=== PATIENT | male | born 1955 | race Caucasian/White ===

== ENCOUNTER 2021-08-06 12:33 | Inpatient (IN) | payer MEDICARE, OTHER ==
[~2021-08-06] VITALS: Ht 152.4 cm; Wt 49.9 kg
[2021-08-06 15:50] VITALS: BP 137/53
[2021-08-06] MEDS ORDERED: INSULIN REGULAR, HUMAN 100 UNITS/ML SQ PRN (16:45)
[2021-08-06] MEDS ORDERED: DEXTROSE 50%-WATER 25 GM/50 ML SYRINGE IVP PRN (16:45)
[2021-08-06 17:21] LABS: GLUCOMETER DEV NAME(LOC) 2WR.2B; GLUCOSE,POINT OF CARE 54 MG/DL (70-110)
[2021-08-06] MEDS: CALCIUM ACETATE 667 MG CAPSULE PEG SCH (17:42)
[2021-08-06 19:51] LABS: GLUCOMETER DEV NAME(LOC) 2WR.2B; GLUCOSE,POINT OF CARE 109 MG/DL (70-110)
[2021-08-06] MEDS ORDERED: LOSARTAN POTASSIUM 50 MG TABLET PEG SCH (21:00)
[2021-08-06 21:30] VITALS: BP 133/64
[2021-08-06] MEDS: DOCUSATE SODIUM 100 MG/10 ML LIQUID UDCUP PEG SCH (22:02)
[2021-08-06] MEDS: ATORVASTATIN CALCIUM 40 MG TABLET PEG SCH (22:02)
[2021-08-06] MEDS: ETHYL ALCOHOL 62% ANTISEPTIC NASAL SANITIZER 0.6 ML AMPUL NASAL SCH (22:02)
[2021-08-06] MEDS: CARVEDILOL 3.125 MG TABLET PEG SCH (22:03)
[2021-08-06] MEDS: SENNA 218 MG/5 ML LIQUID ORAL.SYG PEG SCH (22:03)
[2021-08-06] MEDS: SACUBITRIL/VALSARTAN 24-26 MG TABLET PEG SCH (22:04)
[2021-08-06] MEDS: SEVELAMER CARBONATE 800 MG POWDER PACKET PEG SCH (22:04)
[2021-08-06 23:21] LABS: GLUCOMETER DEV NAME(LOC) 2WR.2B; GLUCOSE,POINT OF CARE 175 MG/DL (70-110)
[2021-08-07] VITALS (13 sets, daily range): BP systolic 108–157; BP diastolic 54–67
[2021-08-07 00:56] LABS: GLUCOMETER DEV NAME(LOC) 2WR.2B; GLUCOSE,POINT OF CARE 176 MG/DL (70-110)
[2021-08-07] MEDS ORDERED: DEXTROSE 50%-WATER 25 GM/50 ML SYRINGE IVP PRN (01:15)
[2021-08-07 06:17] LABS: GLUCOMETER DEV NAME(LOC) 2WR.1C; GLUCOSE,POINT OF CARE 118 MG/DL (70-110)
[2021-08-07] MEDS: DOCUSATE SODIUM 100 MG/10 ML LIQUID UDCUP PEG SCH ×2 (07:54→21:29)
[2021-08-07] MEDS: SACUBITRIL/VALSARTAN 24-26 MG TABLET PEG SCH ×2 (07:54→21:48)
[2021-08-07] MEDS: SEVELAMER CARBONATE 800 MG POWDER PACKET PEG SCH ×3 (07:54→21:30)
[2021-08-07] MEDS: PredniSONE 5 MG TABLET PEG SCH (07:55)
[2021-08-07] MEDS: MULTIVITAMINS WITH MINERALS, THERAPEUTIC 15 ML UDCUP PEG SCH (07:55)
[2021-08-07] MEDS: CARVEDILOL 3.125 MG TABLET PEG SCH ×2 (07:55→21:30)
[2021-08-07] MEDS: LANSOPRAZOLE 30 MG SOLUBLE TABLET PEG SCH (07:55)
[2021-08-07] MEDS: CALCIUM ACETATE 667 MG CAPSULE PEG SCH ×3 (07:55→16:26)
[2021-08-07] MEDS: AmLODIPine BESYLATE 10 MG TABLET PEG SCH (07:56)
[2021-08-07] MEDS: VITAMIN B COMP/VIT C/FOLIC ACID CAPSULE PEG SCH (07:56)
[2021-08-07] MEDS: ALLOPURINOL 100 MG TABLET PEG SCH (07:56)
[2021-08-07] MEDS: ASPIRIN 81 MG CHEWABLE TABLET PEG SCH (07:56)
[2021-08-07] MEDS: CLOPIDOGREL BISULFATE 75 MG TABLET PEG SCH (07:56)
[2021-08-07] MEDS: ETHYL ALCOHOL 62% ANTISEPTIC NASAL SANITIZER 0.6 ML AMPUL NASAL SCH ×2 (07:57→21:30)
[2021-08-07] MEDS: FLUoxetine HCL 20 MG/5 ML SOLUTION UDCUP PEG SCH (07:59)
[2021-08-07] MEDS: INSULIN REGULAR, HUMAN 100 UNITS/ML SQ PRN ×2 (12:10→17:53)
[2021-08-07 12:56] LABS: GLUCOMETER DEV NAME(LOC) 2WR.2B; GLUCOSE,POINT OF CARE 197 MG/DL (70-110)
[2021-08-07 13:55] LABS: ALBUMIN 2.5 g/dL (3.4-5.0); BILIRUBIN,TOTAL 0.4 mg/dL (0.1-1.0); CALCIUM, TOTAL 8.8 mg/dL (8.8-10.5); CREATININE 7.91 mg/dL (0.60-1.30); POTASSIUM 4.9 mmol/L (3.5-5.1); TOTAL PROTEIN, SERUM 6.9 g/dL (6.4-8.2)
[2021-08-07] MEDS ORDERED: SODIUM CHLORIDE 0.9% 1,000 ML ONE ×2 (13:58)
[2021-08-07 14:04] LABS: BASOPHILS % (AUTO) 0.8 % (0.0-2.0); EOSINOPHILS % (AUTO) 0.6 % (1.0-6.0); HEMATOCRIT 27.9 % (41-53); HEMOGLOBIN 9.5 g/dL (13.5-17.5); LYMPHOCYTES # (AUTO) 0.9 K/uL (1.0-4.8); LYMPHOCYTES % (AUTO) 11.1 % (22.0-44.0); MEAN CORPUSCULAR HEMOGLOBIN 29.6 pg (26.0-34.0); MEAN CORPUSCULAR VOLUME 87 fL (80-100); MONOCYTES # (AUTO) 0.5 K/uL (0.1-1.0); NEUTROPHILS # (AUTO) 6.6 K/uL (1.8-7.7); NEUTROPHILS % (AUTO) 81.5 % (40.0-70.0); PLATELET COUNT (AUTO) 193 K/uL (150-450); RED BLOOD CELL COUNT(AUTO) 3.21 MIL/uL (4.50-5.90); RED CELL DISTRIBUTION WIDTH 18.5 % (11.5-14.5)
[2021-08-07 19:41] LABS: GLUCOMETER DEV NAME(LOC) 2WR.1C; GLUCOSE,POINT OF CARE 186 MG/DL (70-110)
[2021-08-07] MEDS: ATORVASTATIN CALCIUM 40 MG TABLET PEG SCH (21:30)
[2021-08-07] MEDS: SENNA 218 MG/5 ML LIQUID ORAL.SYG PEG SCH (21:30)
[2021-08-08] VITALS: BP 137/59
[2021-08-08 00:26] LABS: GLUCOMETER DEV NAME(LOC) 2WR.2B; GLUCOSE,POINT OF CARE 104 MG/DL (70-110)
[2021-08-08] MEDS: CALCIUM ACETATE 667 MG CAPSULE PEG SCH ×3 (06:17→16:08)
[2021-08-08] MEDS: INSULIN REGULAR, HUMAN 100 UNITS/ML SQ PRN ×2 (06:24→12:36)
[2021-08-08 06:26] LABS: GLUCOMETER DEV NAME(LOC) 2WR.2B; GLUCOSE,POINT OF CARE 200 MG/DL (70-110)
[2021-08-08 07:44] LABS: BASOPHILS % (AUTO) 2.4 % (0.0-2.0); EOSINOPHILS % (AUTO) 2.8 % (1.0-6.0); HEMATOCRIT 24.3 % (41-53); HEMOGLOBIN 8.3 g/dL (13.5-17.5); LYMPHOCYTES # (AUTO) 0.6 K/uL (1.0-4.8); LYMPHOCYTES % (AUTO) 12.9 % (22.0-44.0); MEAN CORPUSCULAR HEMOGLOBIN 29.9 pg (26.0-34.0); MEAN CORPUSCULAR HGB CONC 34.2 G/dL (31.0-37.0); MEAN CORPUSCULAR VOLUME 87 fL (80-100); MONOCYTES # (AUTO) 0.5 K/uL (0.1-1.0); MONOCYTES % (AUTO) 9.7 % (2.0-9.0); NEUTROPHILS # (AUTO) 3.6 K/uL (1.8-7.7); NEUTROPHILS % (AUTO) 72.2 % (40.0-70.0); PLATELET COUNT (AUTO) 200 K/uL (150-450); RED BLOOD CELL COUNT(AUTO) 2.79 MIL/uL (4.50-5.90); RED CELL DISTRIBUTION WIDTH 18.3 % (11.5-14.5)
[2021-08-08 07:55] LABS: CALCIUM, TOTAL 8.6 mg/dL (8.8-10.5); CREATININE 4.61 mg/dL (0.60-1.30); MAGNESIUM 1.9 mg/dL (1.80-2.40); PHOSPHORUS 2.8 mg/dL (2.5-4.9); POTASSIUM 3.7 mmol/L (3.5-5.1)
[2021-08-08] MEDS: DOCUSATE SODIUM 100 MG/10 ML LIQUID UDCUP PEG SCH ×2 (08:35→21:00)
[2021-08-08] MEDS: ETHYL ALCOHOL 62% ANTISEPTIC NASAL SANITIZER 0.6 ML AMPUL NASAL SCH ×2 (08:35→21:44)
[2021-08-08] MEDS: FLUoxetine HCL 20 MG/5 ML SOLUTION UDCUP PEG SCH (08:36)
[2021-08-08] MEDS: SACUBITRIL/VALSARTAN 24-26 MG TABLET PEG SCH ×2 (08:36→22:30)
[2021-08-08] MEDS: MULTIVITAMINS WITH MINERALS, THERAPEUTIC 15 ML UDCUP PEG SCH (08:36)
[2021-08-08] MEDS: LANSOPRAZOLE 30 MG SOLUBLE TABLET PEG SCH (08:36)
[2021-08-08] MEDS: PredniSONE 5 MG TABLET PEG SCH (08:36)
[2021-08-08] MEDS: SEVELAMER CARBONATE 800 MG POWDER PACKET PEG SCH ×3 (08:36→21:45)
[2021-08-08] MEDS: CARVEDILOL 3.125 MG TABLET PEG SCH ×2 (08:39→21:00)
[2021-08-08] MEDS: AmLODIPine BESYLATE 10 MG TABLET PEG SCH (08:40)
[2021-08-08] MEDS: CLOPIDOGREL BISULFATE 75 MG TABLET PEG SCH (08:40)
[2021-08-08] MEDS: ASPIRIN 81 MG CHEWABLE TABLET PEG SCH (08:40)
[2021-08-08] MEDS: VITAMIN B COMP/VIT C/FOLIC ACID CAPSULE PEG SCH (08:40)
[2021-08-08] MEDS: ALLOPURINOL 100 MG TABLET PEG SCH (08:41)
[2021-08-08 09:00] VITALS: BP 147/55
[2021-08-08] MEDS ORDERED: VITAMIN B COMP/VIT C/FOLIC ACID CAPSULE PEG SCH (09:00)
[2021-08-08 13:11] LABS: GLUCOMETER DEV NAME(LOC) 2WR.2B; GLUCOSE,POINT OF CARE 177 MG/DL (70-110)
[2021-08-08 14:57] VITALS: BP 142/92
[2021-08-08] MEDS: ACETAMINOPHEN 650 MG/20.3 ML SOLUTION UDCUP PEG PRN (14:57)
[2021-08-08 15:57] VITALS: BP 104/43
[2021-08-08 16:16] LABS: GLUCOMETER DEV NAME(LOC) 2WR.1C; GLUCOSE,POINT OF CARE 182 MG/DL (70-110)
[2021-08-08] MEDS ORDERED: ASPI-1450 PEG (16:30)
[2021-08-08] MEDS ORDERED: ROSU10TA72 PO (16:30)
[2021-08-08] MEDS ORDERED: ALLO-97 PEG (16:30)
[2021-08-08] MEDS ORDERED: PHOSLOC PEG (16:30)
[2021-08-08] MEDS ORDERED: SEVE800T17 PEG (16:30)
[2021-08-08] MEDS ORDERED: AMLO-258 PEG (16:30)
[2021-08-08] MEDS ORDERED: B CO1CAP6 PEG (16:30)
[2021-08-08] MEDS ORDERED: LOSA-382 PO (16:30)
[2021-08-08] MEDS ORDERED: CARV12 PEG (16:30)
[2021-08-08] MEDS ORDERED: FERROUS SULFATE 325 MG EC TABLET PO SCH (17:00)
[2021-08-08 17:36] LABS: GLUCOMETER DEV NAME(LOC) 2WR.1C; GLUCOSE,POINT OF CARE 138 MG/DL (70-110)
[2021-08-08] MEDS: SENNA 218 MG/5 ML LIQUID ORAL.SYG PEG SCH (21:00)
[2021-08-08 21:07] VITALS: BP 123/60
[2021-08-08] MEDS: ATORVASTATIN CALCIUM 40 MG TABLET PEG SCH (21:44)
[2021-08-09] VITALS (8 sets, daily range): BP systolic 99–153; BP diastolic 52–62
[2021-08-09] MEDS: INSULIN REGULAR, HUMAN 100 UNITS/ML SQ PRN ×3 (00:17→12:44)
[2021-08-09 00:22] LABS: GLUCOMETER DEV NAME(LOC) 2WR.2B; GLUCOSE,POINT OF CARE 164 MG/DL (70-110)
[2021-08-09 06:16] LABS: GLUCOMETER DEV NAME(LOC) 2WR.1C; GLUCOSE,POINT OF CARE 178 MG/DL (70-110)
[2021-08-09 06:52] LABS: BASOPHILS % (AUTO) 0.3 % (0.0-2.0); EOSINOPHILS % (AUTO) 1.1 % (1.0-6.0); HEMATOCRIT 26.4 % (41-53); LYMPHOCYTES # (AUTO) 0.7 K/uL (1.0-4.8); LYMPHOCYTES % (AUTO) 9.9 % (22.0-44.0); MEAN CORPUSCULAR HEMOGLOBIN 29.8 pg (26.0-34.0); MEAN CORPUSCULAR HGB CONC 34.2 G/dL (31.0-37.0); MEAN CORPUSCULAR VOLUME 87 fL (80-100); MONOCYTES # (AUTO) 0.6 K/uL (0.1-1.0); NEUTROPHILS # (AUTO) 5.8 K/uL (1.8-7.7); NEUTROPHILS % (AUTO) 80.7 % (40.0-70.0); PLATELET COUNT (AUTO) 227 K/uL (150-450); RED BLOOD CELL COUNT(AUTO) 3.03 MIL/uL (4.50-5.90); RED CELL DISTRIBUTION WIDTH 18.6 % (11.5-14.5)
[2021-08-09] MEDS: ASPIRIN 81 MG CHEWABLE TABLET PEG SCH (08:39)
[2021-08-09] MEDS: CALCIUM ACETATE 667 MG CAPSULE PEG SCH ×3 (08:39→16:16)
[2021-08-09] MEDS: CLOPIDOGREL BISULFATE 75 MG TABLET PEG SCH (08:40)
[2021-08-09] MEDS: DOCUSATE SODIUM 100 MG/10 ML LIQUID UDCUP PEG SCH ×3 (08:40→20:17)
[2021-08-09] MEDS: ETHYL ALCOHOL 62% ANTISEPTIC NASAL SANITIZER 0.6 ML AMPUL NASAL SCH ×2 (08:40→20:16)
[2021-08-09] MEDS: AmLODIPine BESYLATE 10 MG TABLET PEG SCH (08:40)
[2021-08-09] MEDS: VITAMIN B COMP/VIT C/FOLIC ACID CAPSULE PEG SCH (08:40)
[2021-08-09] MEDS: ALLOPURINOL 100 MG TABLET PEG SCH (08:40)
[2021-08-09] MEDS: CARVEDILOL 3.125 MG TABLET PEG SCH ×2 (08:40→20:26)
[2021-08-09] MEDS: PredniSONE 5 MG TABLET PEG SCH (08:41)
[2021-08-09] MEDS: SACUBITRIL/VALSARTAN 24-26 MG TABLET PEG SCH ×2 (08:41→20:26)
[2021-08-09] MEDS: FLUoxetine HCL 20 MG/5 ML SOLUTION UDCUP PEG SCH (08:41)
[2021-08-09] MEDS: LANSOPRAZOLE 30 MG SOLUBLE TABLET PEG SCH (08:41)
[2021-08-09] MEDS: SEVELAMER CARBONATE 800 MG POWDER PACKET PEG SCH ×3 (08:42→20:26)
[2021-08-09 12:21] LABS: GLUCOMETER DEV NAME(LOC) 2WR.1C; GLUCOSE,POINT OF CARE 163 MG/DL (70-110)
[2021-08-09] MEDS: ACETAMINOPHEN 650 MG/20.3 ML SOLUTION UDCUP PEG PRN ×2 (12:42→20:27)
[2021-08-09 18:55] LABS: GLUCOMETER DEV NAME(LOC) 2WR.2B; GLUCOSE,POINT OF CARE 85 MG/DL (70-110)
[2021-08-09] MEDS: SENNA 218 MG/5 ML LIQUID ORAL.SYG PEG SCH (20:18)
[2021-08-09] MEDS: ATORVASTATIN CALCIUM 40 MG TABLET PEG SCH (20:26)
[2021-08-10] VITALS (12 sets, daily range): BP systolic 107–147; BP diastolic 50–80
[2021-08-10] MEDS: INSULIN REGULAR, HUMAN 100 UNITS/ML SQ PRN (02:27)
[2021-08-10 04:06] LABS: GLUCOMETER DEV NAME(LOC) 2WR.2B; GLUCOSE,POINT OF CARE 180 MG/DL (70-110)
[2021-08-10 06:21] LABS: GLUCOMETER DEV NAME(LOC) 2WR.1C; GLUCOSE,POINT OF CARE 135 MG/DL (70-110)
[2021-08-10] MEDS: CALCIUM ACETATE 667 MG CAPSULE PEG SCH ×3 (08:35→16:46)
[2021-08-10] MEDS: CARVEDILOL 3.125 MG TABLET PEG SCH (08:47)
[2021-08-10] MEDS: ETHYL ALCOHOL 62% ANTISEPTIC NASAL SANITIZER 0.6 ML AMPUL NASAL SCH (08:47)
[2021-08-10] MEDS: ASPIRIN 81 MG CHEWABLE TABLET PEG SCH (08:47)
[2021-08-10] MEDS: DOCUSATE SODIUM 100 MG/10 ML LIQUID UDCUP PEG SCH ×2 (08:47→21:00)
[2021-08-10] MEDS: LANSOPRAZOLE 30 MG SOLUBLE TABLET PEG SCH (08:48)
[2021-08-10] MEDS: SACUBITRIL/VALSARTAN 24-26 MG TABLET PEG SCH (08:48)
[2021-08-10] MEDS: FLUoxetine HCL 20 MG/5 ML SOLUTION UDCUP PEG SCH (08:49)
[2021-08-10] MEDS: VITAMIN B COMP/VIT C/FOLIC ACID CAPSULE PEG SCH (08:49)
[2021-08-10] MEDS: AmLODIPine BESYLATE 10 MG TABLET PEG SCH (08:51)
[2021-08-10] MEDS: SEVELAMER CARBONATE 800 MG POWDER PACKET PEG SCH ×2 (08:53→14:57)
[2021-08-10] MEDS: PredniSONE 5 MG TABLET PEG SCH (08:55)
[2021-08-10] MEDS: CLOPIDOGREL BISULFATE 75 MG TABLET PEG SCH (08:56)
[2021-08-10] MEDS: ALLOPURINOL 100 MG TABLET PEG SCH (09:02)
[2021-08-10] MEDS ORDERED: SODIUM CHLORIDE 0.9% 2,000 ML ONE (09:39)
[2021-08-10 11:56] LABS: GLUCOMETER DEV NAME(LOC) 2WR.1C; GLUCOSE,POINT OF CARE 131 MG/DL (70-110)
[2021-08-10 16:55] LABS: GLUCOMETER DEV NAME(LOC) 2WR.2B; GLUCOSE,POINT OF CARE 115 MG/DL (70-110)
[2021-08-10] MEDS: SENNA 218 MG/5 ML LIQUID ORAL.SYG PEG SCH (21:00)
[2021-08-10 22:01] LABS: GLUCOMETER DEV NAME(LOC) 2WR.1C; GLUCOSE,POINT OF CARE 108 MG/DL (70-110)
[2021-08-11] VITALS: BP 133/58
[2021-08-11] MEDS: CARVEDILOL 3.125 MG TABLET PEG SCH ×3 (00:18→21:06)
[2021-08-11] MEDS: ETHYL ALCOHOL 62% ANTISEPTIC NASAL SANITIZER 0.6 ML AMPUL NASAL SCH ×3 (00:18→21:06)
[2021-08-11] MEDS: SACUBITRIL/VALSARTAN 24-26 MG TABLET PEG SCH ×3 (00:19→21:06)
[2021-08-11] MEDS: SEVELAMER CARBONATE 800 MG POWDER PACKET PEG SCH ×4 (00:20→21:06)
[2021-08-11] MEDS: ATORVASTATIN CALCIUM 40 MG TABLET PEG SCH ×2 (00:21→21:06)
[2021-08-11] MEDS: DOCUSATE SODIUM 283 MG/5 ML MINI-ENEMA PR SCH (05:55)
[2021-08-11 06:36] LABS: GLUCOMETER DEV NAME(LOC) 2WR.1C; GLUCOSE,POINT OF CARE 103 MG/DL (70-110)
[2021-08-11 08:15] VITALS: BP 146/56
[2021-08-11] MEDS: CLOPIDOGREL BISULFATE 75 MG TABLET PEG SCH (08:19)
[2021-08-11] MEDS: VITAMIN B COMP/VIT C/FOLIC ACID CAPSULE PEG SCH (08:19)
[2021-08-11] MEDS: ALLOPURINOL 100 MG TABLET PEG SCH (08:19)
[2021-08-11] MEDS: CALCIUM ACETATE 667 MG CAPSULE PEG SCH ×4 (08:19→16:02)
[2021-08-11] MEDS: AmLODIPine BESYLATE 10 MG TABLET PEG SCH (08:20)
[2021-08-11] MEDS: ASPIRIN 81 MG CHEWABLE TABLET PEG SCH (08:20)
[2021-08-11] MEDS: FLUoxetine HCL 20 MG/5 ML SOLUTION UDCUP PEG SCH (08:20)
[2021-08-11] MEDS: DOCUSATE SODIUM 100 MG/10 ML LIQUID UDCUP PEG SCH ×2 (08:21→21:00)
[2021-08-11] MEDS: LANSOPRAZOLE 30 MG SOLUBLE TABLET PEG SCH (08:21)
[2021-08-11] MEDS: PredniSONE 5 MG TABLET PEG SCH (08:21)
[2021-08-11 09:34] LABS: % IRON SATURATION 19.4 % (30-44)
[2021-08-11 11:51] LABS: GLUCOMETER DEV NAME(LOC) 2WR.2B; GLUCOSE,POINT OF CARE 261 MG/DL (70-110)
[2021-08-11] MEDS: INSULIN LISPRO 100 UNITS/ML SQ PRN ×3 (12:37→20:25)
[2021-08-11] MEDS: SOD FERRIC GLUC COMPLX/SUCROSE 125 MG in SODIUM CHLORIDE 0.9% 100 ML IV SCH (14:54)
[2021-08-11] MEDS ORDERED: SODIUM CHLORIDE 0.9% 100 ML ONE (14:57)
[2021-08-11 16:01] VITALS: BP 104/56
[2021-08-11 17:51] LABS: GLUCOMETER DEV NAME(LOC) 2WR.2B; GLUCOSE,POINT OF CARE 192 MG/DL (70-110)
[2021-08-11 20:27] VITALS: BP 125/54
[2021-08-11] MEDS: SENNA 218 MG/5 ML LIQUID ORAL.SYG PEG SCH (21:00)
[2021-08-11 21:46] LABS: GLUCOMETER DEV NAME(LOC) 2WR.2B; GLUCOSE,POINT OF CARE 153 MG/DL (70-110)
[2021-08-12] VITALS (13 sets, daily range): BP systolic 100–140; BP diastolic 47–71
[2021-08-12] MEDS: DOCUSATE SODIUM 283 MG/5 ML MINI-ENEMA PR SCH (05:39)
[2021-08-12 06:51] LABS: GLUCOMETER DEV NAME(LOC) 2WR.2B; GLUCOSE,POINT OF CARE 170 MG/DL (70-110)
[2021-08-12] MEDS: INSULIN LISPRO 100 UNITS/ML SQ PRN ×2 (07:30→12:44)
[2021-08-12] MEDS: SEVELAMER CARBONATE 800 MG POWDER PACKET PEG SCH ×3 (07:58→21:37)
[2021-08-12] MEDS: FLUoxetine HCL 20 MG/5 ML SOLUTION UDCUP PEG SCH (07:58)
[2021-08-12] MEDS: CALCIUM ACETATE 667 MG CAPSULE PEG SCH ×3 (08:00→18:10)
[2021-08-12] MEDS: ASPIRIN 81 MG CHEWABLE TABLET PEG SCH (08:00)
[2021-08-12] MEDS: ETHYL ALCOHOL 62% ANTISEPTIC NASAL SANITIZER 0.6 ML AMPUL NASAL SCH ×2 (08:00→21:38)
[2021-08-12] MEDS: AmLODIPine BESYLATE 10 MG TABLET PEG SCH (08:01)
[2021-08-12] MEDS: CARVEDILOL 3.125 MG TABLET PEG SCH ×2 (08:01→21:38)
[2021-08-12] MEDS: DOCUSATE SODIUM 100 MG/10 ML LIQUID UDCUP PEG SCH ×2 (08:01→21:38)
[2021-08-12] MEDS: PredniSONE 5 MG TABLET PEG SCH (08:02)
[2021-08-12] MEDS: SACUBITRIL/VALSARTAN 24-26 MG TABLET PEG SCH ×2 (08:02→21:38)
[2021-08-12] MEDS: LANSOPRAZOLE 30 MG SOLUBLE TABLET PEG SCH (08:02)
[2021-08-12] MEDS: CLOPIDOGREL BISULFATE 75 MG TABLET PEG SCH (08:03)
[2021-08-12] MEDS: VITAMIN B COMP/VIT C/FOLIC ACID CAPSULE PEG SCH (08:03)
[2021-08-12] MEDS: ALLOPURINOL 100 MG TABLET PEG SCH (08:06)
[2021-08-12 13:01] LABS: GLUCOMETER DEV NAME(LOC) 2WR.2B; GLUCOSE,POINT OF CARE 165 MG/DL (70-110)
[2021-08-12] MEDS ORDERED: SODIUM CHLORIDE 0.9% 1,000 ML ONE ×2 (13:40)
[2021-08-12] MEDS: SOD FERRIC GLUC COMPLX/SUCROSE 125 MG in SODIUM CHLORIDE 0.9% 100 ML IV SCH (14:00)
[2021-08-12 19:12] LABS: GLUCOMETER DEV NAME(LOC) 2WR.1C; GLUCOSE,POINT OF CARE 97 MG/DL (70-110)
[2021-08-12] MEDS: ATORVASTATIN CALCIUM 40 MG TABLET PEG SCH (21:38)
[2021-08-12] MEDS: SENNA 218 MG/5 ML LIQUID ORAL.SYG PEG SCH (21:38)
[2021-08-12 22:11] LABS: GLUCOMETER DEV NAME(LOC) 2WR.1C; GLUCOSE,POINT OF CARE 124 MG/DL (70-110)
[2021-08-13] MEDS: DOCUSATE SODIUM 283 MG/5 ML MINI-ENEMA PR SCH (06:32)
[2021-08-13 06:46] LABS: GLUCOMETER DEV NAME(LOC) 2WR.2B; GLUCOSE,POINT OF CARE 157 MG/DL (70-110)
[2021-08-13 08:15] VITALS: BP 144/61
[2021-08-13] MEDS: INSULIN LISPRO 100 UNITS/ML SQ PRN ×3 (08:43→20:39)
[2021-08-13] MEDS: DOCUSATE SODIUM 100 MG/10 ML LIQUID UDCUP PEG SCH ×2 (09:00→21:00)
[2021-08-13] MEDS: ETHYL ALCOHOL 62% ANTISEPTIC NASAL SANITIZER 0.6 ML AMPUL NASAL SCH ×2 (09:10→20:43)
[2021-08-13] MEDS: CALCIUM ACETATE 667 MG CAPSULE PEG SCH ×3 (09:10→16:59)
[2021-08-13] MEDS: ASPIRIN 81 MG CHEWABLE TABLET PEG SCH (09:11)
[2021-08-13] MEDS: PredniSONE 5 MG TABLET PEG SCH (09:12)
[2021-08-13] MEDS: SACUBITRIL/VALSARTAN 24-26 MG TABLET PEG SCH ×2 (09:12→20:42)
[2021-08-13] MEDS: CARVEDILOL 3.125 MG TABLET PEG SCH ×2 (09:12→20:42)
[2021-08-13] MEDS: LANSOPRAZOLE 30 MG SOLUBLE TABLET PEG SCH (09:13)
[2021-08-13] MEDS: CLOPIDOGREL BISULFATE 75 MG TABLET PEG SCH (09:13)
[2021-08-13] MEDS: AmLODIPine BESYLATE 10 MG TABLET PEG SCH (09:13)
[2021-08-13] MEDS: VITAMIN B COMP/VIT C/FOLIC ACID CAPSULE PEG SCH (09:13)
[2021-08-13] MEDS: SEVELAMER CARBONATE 800 MG POWDER PACKET PEG SCH ×3 (09:13→20:43)
[2021-08-13] MEDS: FLUoxetine HCL 20 MG/5 ML SOLUTION UDCUP PEG SCH (09:13)
[2021-08-13] MEDS: 0.9% SODIUM CHLORIDE 10 ML SYRINGE IVP SCH ×2 (09:14→22:14)
[2021-08-13] MEDS: ALLOPURINOL 100 MG TABLET PEG SCH (09:14)
[2021-08-13 12:41] LABS: GLUCOMETER DEV NAME(LOC) 2WR.2B; GLUCOSE,POINT OF CARE 219 MG/DL (70-110)
[2021-08-13] MEDS: SOD FERRIC GLUC COMPLX/SUCROSE 125 MG in SODIUM CHLORIDE 0.9% 100 ML IV SCH (13:53)
[2021-08-13 15:31] VITALS: BP 96/43
[2021-08-13 17:26] LABS: GLUCOMETER DEV NAME(LOC) 2WR.1C; GLUCOSE,POINT OF CARE 134 MG/DL (70-110)
[2021-08-13] MEDS ORDERED: SENNA 218 MG/5 ML LIQUID ORAL.SYG PEG PRN (18:45)
[2021-08-13 20:00] VITALS: BP 120/59
[2021-08-13 20:31] LABS: GLUCOMETER DEV NAME(LOC) 2WR.2B; GLUCOSE,POINT OF CARE 172 MG/DL (70-110)
[2021-08-13] MEDS: ATORVASTATIN CALCIUM 40 MG TABLET PEG SCH (20:44)
[2021-08-14 05:46] LABS: HEMATOCRIT 23.4 % (41-53); HEMOGLOBIN 8.1 g/dL (13.5-17.5); LYMPHOCYTES # (AUTO) 0.8 K/uL (1.0-4.8); MEAN CORPUSCULAR HEMOGLOBIN 29.9 pg (26.0-34.0); MEAN CORPUSCULAR HGB CONC 34.7 G/dL (31.0-37.0); MEAN CORPUSCULAR VOLUME 86 fL (80-100); MONOCYTES # (AUTO) 0.6 K/uL (0.1-1.0); MONOCYTES % (AUTO) 11.6 % (2.0-9.0); NEUTROPHILS # (AUTO) 3.8 K/uL (1.8-7.7); NEUTROPHILS % (AUTO) 69.4 % (40.0-70.0); PLATELET COUNT (AUTO) 217 K/uL (150-450); RED BLOOD CELL COUNT(AUTO) 2.72 MIL/uL (4.50-5.90)
[2021-08-14 05:59] LABS: CALCIUM, TOTAL 8.2 mg/dL (8.8-10.5); CREATININE 6.06 mg/dL (0.60-1.30); POTASSIUM 3.8 mmol/L (3.5-5.1)
[2021-08-14 06:21] LABS: GLUCOMETER DEV NAME(LOC) 2WR.2B; GLUCOSE,POINT OF CARE 150 MG/DL (70-110)
[2021-08-14 07:50] VITALS: BP 139/57
[2021-08-14] MEDS: CALCIUM ACETATE 667 MG CAPSULE PEG SCH ×3 (08:12→16:41)
[2021-08-14] MEDS: ASPIRIN 81 MG CHEWABLE TABLET PEG SCH (08:13)
[2021-08-14] MEDS: ETHYL ALCOHOL 62% ANTISEPTIC NASAL SANITIZER 0.6 ML AMPUL NASAL SCH ×2 (08:13→21:29)
[2021-08-14] MEDS: 0.9% SODIUM CHLORIDE 10 ML SYRINGE IVP SCH ×2 (08:13→21:29)
[2021-08-14] MEDS: CLOPIDOGREL BISULFATE 75 MG TABLET PEG SCH (08:13)
[2021-08-14] MEDS: VITAMIN B COMP/VIT C/FOLIC ACID CAPSULE PEG SCH (08:13)
[2021-08-14] MEDS: ALLOPURINOL 100 MG TABLET PEG SCH (08:13)
[2021-08-14] MEDS: PredniSONE 5 MG TABLET PEG SCH (08:14)
[2021-08-14] MEDS: SACUBITRIL/VALSARTAN 24-26 MG TABLET PEG SCH ×2 (08:14→21:28)
[2021-08-14] MEDS: FLUoxetine HCL 20 MG/5 ML SOLUTION UDCUP PEG SCH (08:14)
[2021-08-14] MEDS: LANSOPRAZOLE 30 MG SOLUBLE TABLET PEG SCH (08:15)
[2021-08-14] MEDS: SEVELAMER CARBONATE 800 MG POWDER PACKET PEG SCH ×3 (08:15→21:28)
[2021-08-14] MEDS: AmLODIPine BESYLATE 10 MG TABLET PEG SCH (08:44)
[2021-08-14] MEDS: CARVEDILOL 3.125 MG TABLET PEG SCH ×2 (08:44→21:28)
[2021-08-14] MEDS: DOCUSATE SODIUM 100 MG/10 ML LIQUID UDCUP PEG SCH ×2 (08:44→21:28)
[2021-08-14] MEDS: INSULIN LISPRO 100 UNITS/ML SQ PRN ×3 (08:46→16:59)
[2021-08-14 09:00] VITALS: BP 126/54
[2021-08-14 11:57] LABS: GLUCOMETER DEV NAME(LOC) 2WR.2B; GLUCOSE,POINT OF CARE 186 MG/DL (70-110)
[2021-08-14] MEDS: SOD FERRIC GLUC COMPLX/SUCROSE 125 MG in SODIUM CHLORIDE 0.9% 100 ML IV SCH (13:06)
[2021-08-14 13:32] VITALS: BP 118/47
[2021-08-14 16:56] LABS: GLUCOMETER DEV NAME(LOC) 2WR.2B; GLUCOSE,POINT OF CARE 161 MG/DL (70-110)
[2021-08-14 20:00] VITALS: BP 131/53
[2021-08-14 21:16] LABS: GLUCOMETER DEV NAME(LOC) 2WR.2B; GLUCOSE,POINT OF CARE 126 MG/DL (70-110)
[2021-08-14] MEDS: ATORVASTATIN CALCIUM 40 MG TABLET PEG SCH (21:28)
[2021-08-15] VITALS (11 sets, daily range): BP systolic 111–147; BP diastolic 50–60
[2021-08-15 06:31] LABS: GLUCOMETER DEV NAME(LOC) 2WR.2B; GLUCOSE,POINT OF CARE 159 MG/DL (70-110)
[2021-08-15] MEDS: INSULIN LISPRO 100 UNITS/ML SQ PRN ×2 (08:31→12:41)
[2021-08-15] MEDS: CALCIUM ACETATE 667 MG CAPSULE PEG SCH ×3 (08:38→16:40)
[2021-08-15] MEDS: 0.9% SODIUM CHLORIDE 10 ML SYRINGE IVP SCH ×2 (08:50→21:01)
[2021-08-15] MEDS: CARVEDILOL 3.125 MG TABLET PEG SCH ×2 (09:00→20:11)
[2021-08-15] MEDS: AmLODIPine BESYLATE 10 MG TABLET PEG SCH (09:00)
[2021-08-15] MEDS: ETHYL ALCOHOL 62% ANTISEPTIC NASAL SANITIZER 0.6 ML AMPUL NASAL SCH ×2 (09:51→20:11)
[2021-08-15] MEDS: DOCUSATE SODIUM 100 MG/10 ML LIQUID UDCUP PEG SCH ×2 (09:51→20:11)
[2021-08-15] MEDS: ASPIRIN 81 MG CHEWABLE TABLET PEG SCH (09:51)
[2021-08-15] MEDS: VITAMIN B COMP/VIT C/FOLIC ACID CAPSULE PEG SCH (09:53)
[2021-08-15] MEDS: CLOPIDOGREL BISULFATE 75 MG TABLET PEG SCH (09:53)
[2021-08-15] MEDS: LANSOPRAZOLE 30 MG SOLUBLE TABLET PEG SCH (09:53)
[2021-08-15] MEDS: PredniSONE 5 MG TABLET PEG SCH (09:53)
[2021-08-15] MEDS: SACUBITRIL/VALSARTAN 24-26 MG TABLET PEG SCH ×2 (09:53→20:11)
[2021-08-15] MEDS: SEVELAMER CARBONATE 800 MG POWDER PACKET PEG SCH ×3 (09:54→20:11)
[2021-08-15] MEDS: FLUoxetine HCL 20 MG/5 ML SOLUTION UDCUP PEG SCH (09:54)
[2021-08-15] MEDS: ALLOPURINOL 100 MG TABLET PEG SCH (09:55)
[2021-08-15] MEDS ORDERED: SODIUM CHLORIDE 0.9% 1,000 ML ONE (12:58)
[2021-08-15] MEDS: SOD FERRIC GLUC COMPLX/SUCROSE 125 MG in SODIUM CHLORIDE 0.9% 100 ML IV SCH (13:13)
[2021-08-15 14:26] LABS: GLUCOMETER DEV NAME(LOC) 2WR.2B; GLUCOSE,POINT OF CARE 187 MG/DL (70-110)
[2021-08-15 18:36] LABS: GLUCOMETER DEV NAME(LOC) 2WR.2B; GLUCOSE,POINT OF CARE 108 MG/DL (70-110)
[2021-08-15] MEDS: ATORVASTATIN CALCIUM 40 MG TABLET PEG SCH (20:11)
[2021-08-15 21:11] LABS: GLUCOMETER DEV NAME(LOC) 2WR.2B; GLUCOSE,POINT OF CARE 119 MG/DL (70-110)
[2021-08-16 06:56] LABS: GLUCOMETER DEV NAME(LOC) 2WR.2B; GLUCOSE,POINT OF CARE 122 MG/DL (70-110)
[2021-08-16] MEDS: FLUoxetine HCL 20 MG/5 ML SOLUTION UDCUP PEG SCH (08:48)
[2021-08-16] MEDS: SEVELAMER CARBONATE 800 MG POWDER PACKET PEG SCH ×3 (08:48→20:51)
[2021-08-16] MEDS: VITAMIN B COMP/VIT C/FOLIC ACID CAPSULE PEG SCH (08:49)
[2021-08-16] MEDS: ALLOPURINOL 100 MG TABLET PEG SCH (08:49)
[2021-08-16] MEDS: SACUBITRIL/VALSARTAN 24-26 MG TABLET PEG SCH ×2 (08:49→20:51)
[2021-08-16] MEDS: AmLODIPine BESYLATE 10 MG TABLET PEG SCH (08:49)
[2021-08-16] MEDS: LANSOPRAZOLE 30 MG SOLUBLE TABLET PEG SCH (08:49)
[2021-08-16] MEDS: CARVEDILOL 3.125 MG TABLET PEG SCH ×2 (08:49→20:51)
[2021-08-16] MEDS: ASPIRIN 81 MG CHEWABLE TABLET PEG SCH (08:49)
[2021-08-16] MEDS: CALCIUM ACETATE 667 MG CAPSULE PEG SCH ×3 (08:49→17:03)
[2021-08-16] MEDS: PredniSONE 5 MG TABLET PEG SCH (08:49)
[2021-08-16] MEDS: DOCUSATE SODIUM 100 MG/10 ML LIQUID UDCUP PEG SCH ×2 (08:50→20:52)
[2021-08-16] MEDS: ETHYL ALCOHOL 62% ANTISEPTIC NASAL SANITIZER 0.6 ML AMPUL NASAL SCH ×2 (08:50→20:51)
[2021-08-16] MEDS: CLOPIDOGREL BISULFATE 75 MG TABLET PEG SCH (08:50)
[2021-08-16] MEDS: 0.9% SODIUM CHLORIDE 10 ML SYRINGE IVP SCH ×2 (08:50→21:26)
[2021-08-16 10:53] VITALS: BP 146/54
[2021-08-16] MEDS ORDERED: SODIUM CHLORIDE 0.9% 250 ML IV ONE (12:36)
[2021-08-16] MEDS: INSULIN LISPRO 100 UNITS/ML SQ PRN ×2 (12:40→17:01)
[2021-08-16 13:26] LABS: GLUCOMETER DEV NAME(LOC) 2WR.1C; GLUCOSE,POINT OF CARE 207 MG/DL (70-110)
[2021-08-16 15:13] VITALS: BP 114/52
[2021-08-16 17:46] LABS: GLUCOMETER DEV NAME(LOC) 2WR.1C; GLUCOSE,POINT OF CARE 164 MG/DL (70-110)
[2021-08-16] MEDS: ATORVASTATIN CALCIUM 40 MG TABLET PEG SCH (20:51)
[2021-08-16 21:16] LABS: GLUCOMETER DEV NAME(LOC) 2WR.1C; GLUCOSE,POINT OF CARE 128 MG/DL (70-110)
[2021-08-16] MEDS: SOD FERRIC GLUC COMPLX/SUCROSE 125 MG in SODIUM CHLORIDE 0.9% 100 ML IV SCH (21:24)
[2021-08-17] VITALS (14 sets, daily range): BP systolic 125–160; BP diastolic 55–70
[2021-08-17 05:39] LABS: EOSINOPHILS % (AUTO) 2.7 % (1.0-6.0); HEMOGLOBIN 7.8 g/dL (13.5-17.5); LYMPHOCYTES % (AUTO) 14.9 % (22.0-44.0); MEAN CORPUSCULAR HEMOGLOBIN 30.2 pg (26.0-34.0); MEAN CORPUSCULAR HGB CONC 35.3 G/dL (31.0-37.0); MEAN CORPUSCULAR VOLUME 86 fL (80-100); MONOCYTES # (AUTO) 0.5 K/uL (0.1-1.0); MONOCYTES % (AUTO) 7.6 % (2.0-9.0); NEUTROPHILS % (AUTO) 73.8 % (40.0-70.0); PLATELET COUNT (AUTO) 169 K/uL (150-450); RED BLOOD CELL COUNT(AUTO) 2.57 MIL/uL (4.50-5.90); RED CELL DISTRIBUTION WIDTH 18.6 % (11.5-14.5)
[2021-08-17 06:01] LABS: CREATININE 5.61 mg/dL (0.60-1.30)
[2021-08-17 06:02] LABS: CALCIUM, TOTAL 8.2 mg/dL (8.8-10.5)
[2021-08-17 06:26] LABS: GLUCOMETER DEV NAME(LOC) 2WR.1C; GLUCOSE,POINT OF CARE 153 MG/DL (70-110)
[2021-08-17] MEDS: CALCIUM ACETATE 667 MG CAPSULE PEG SCH ×3 (08:09→20:23)
[2021-08-17] MEDS: ETHYL ALCOHOL 62% ANTISEPTIC NASAL SANITIZER 0.6 ML AMPUL NASAL SCH ×2 (08:09→20:25)
[2021-08-17] MEDS: ALLOPURINOL 100 MG TABLET PEG SCH (08:09)
[2021-08-17] MEDS: VITAMIN B COMP/VIT C/FOLIC ACID CAPSULE PEG SCH (08:09)
[2021-08-17] MEDS: ASPIRIN 81 MG CHEWABLE TABLET PEG SCH (08:10)
[2021-08-17] MEDS: FLUoxetine HCL 20 MG/5 ML SOLUTION UDCUP PEG SCH (08:10)
[2021-08-17] MEDS: SEVELAMER CARBONATE 800 MG POWDER PACKET PEG SCH ×3 (08:10→20:24)
[2021-08-17] MEDS: CLOPIDOGREL BISULFATE 75 MG TABLET PEG SCH (08:10)
[2021-08-17] MEDS: LANSOPRAZOLE 30 MG SOLUBLE TABLET PEG SCH (08:11)
[2021-08-17] MEDS: DOCUSATE SODIUM 100 MG/10 ML LIQUID UDCUP PEG SCH ×2 (08:14→20:23)
[2021-08-17] MEDS: SACUBITRIL/VALSARTAN 24-26 MG TABLET PEG SCH ×3 (08:15→20:24)
[2021-08-17] MEDS: AmLODIPine BESYLATE 10 MG TABLET PEG SCH (08:15)
[2021-08-17] MEDS: CARVEDILOL 3.125 MG TABLET PEG SCH ×2 (08:16→20:24)
[2021-08-17] MEDS: INSULIN LISPRO 100 UNITS/ML SQ PRN (08:35)
[2021-08-17] MEDS: 0.9% SODIUM CHLORIDE 10 ML SYRINGE IVP SCH ×2 (09:08→21:14)
[2021-08-17] MEDS: MODAFINIL 100 MG TABLET PO SCH (12:03)
[2021-08-17 12:42] LABS: GLUCOMETER DEV NAME(LOC) 2WR.2B; GLUCOSE,POINT OF CARE 130 MG/DL (70-110)
[2021-08-17] MEDS: SOD FERRIC GLUC COMPLX/SUCROSE 125 MG in SODIUM CHLORIDE 0.9% 100 ML IV SCH (13:16)
[2021-08-17] MEDS ORDERED: SODIUM CHLORIDE 0.9% 2,000 ML ONE (14:32)
[2021-08-17 19:31] LABS: GLUCOMETER DEV NAME(LOC) 2WR.2B; GLUCOSE,POINT OF CARE 132 MG/DL (70-110)
[2021-08-17] MEDS: ATORVASTATIN CALCIUM 40 MG TABLET PEG SCH (20:25)
[2021-08-17 21:32] LABS: GLUCOMETER DEV NAME(LOC) 2WR.2B; GLUCOSE,POINT OF CARE 123 MG/DL (70-110)
[2021-08-18 07:46] LABS: GLUCOMETER DEV NAME(LOC) 2WR.2B; GLUCOSE,POINT OF CARE 97 MG/DL (70-110)
[2021-08-18 08:02] VITALS: BP 141/53
[2021-08-18] MEDS: LANSOPRAZOLE 30 MG SOLUBLE TABLET PEG SCH (08:11)
[2021-08-18] MEDS: AmLODIPine BESYLATE 10 MG TABLET PEG SCH (08:11)
[2021-08-18] MEDS: SACUBITRIL/VALSARTAN 24-26 MG TABLET PEG SCH ×2 (08:11→21:08)
[2021-08-18] MEDS: VITAMIN B COMP/VIT C/FOLIC ACID CAPSULE PEG SCH (08:11)
[2021-08-18] MEDS: MODAFINIL 100 MG TABLET PO SCH (08:12)
[2021-08-18] MEDS: ALLOPURINOL 100 MG TABLET PEG SCH (08:12)
[2021-08-18] MEDS: CALCIUM ACETATE 667 MG CAPSULE PEG SCH ×3 (08:12→16:28)
[2021-08-18] MEDS: ASPIRIN 81 MG CHEWABLE TABLET PEG SCH (08:12)
[2021-08-18] MEDS: CLOPIDOGREL BISULFATE 75 MG TABLET PEG SCH (08:12)
[2021-08-18] MEDS: CARVEDILOL 3.125 MG TABLET PEG SCH ×2 (08:12→21:08)
[2021-08-18] MEDS: SEVELAMER CARBONATE 800 MG POWDER PACKET PEG SCH ×3 (08:13→21:08)
[2021-08-18] MEDS: FLUoxetine HCL 20 MG/5 ML SOLUTION UDCUP PEG SCH (08:13)
[2021-08-18] MEDS: DOCUSATE SODIUM 100 MG/10 ML LIQUID UDCUP PEG SCH ×2 (08:13→21:08)
[2021-08-18] MEDS: ETHYL ALCOHOL 62% ANTISEPTIC NASAL SANITIZER 0.6 ML AMPUL NASAL SCH ×2 (08:13→21:08)
[2021-08-18] MEDS: 0.9% SODIUM CHLORIDE 10 ML SYRINGE IVP SCH ×2 (08:14→21:08)
[2021-08-18] MEDS: INSULIN LISPRO 100 UNITS/ML SQ PRN ×2 (12:26→21:15)
[2021-08-18 13:01] LABS: GLUCOMETER DEV NAME(LOC) 2WR.2B; GLUCOSE,POINT OF CARE 164 MG/DL (70-110)
[2021-08-18] MEDS: SOD FERRIC GLUC COMPLX/SUCROSE 125 MG in SODIUM CHLORIDE 0.9% 100 ML IV SCH (14:56)
[2021-08-18 16:41] LABS: GLUCOMETER DEV NAME(LOC) 2WR.2B; GLUCOSE,POINT OF CARE 103 MG/DL (70-110)
[2021-08-18 20:50] LABS: GLUCOMETER DEV NAME(LOC) 2WR.2B; GLUCOSE,POINT OF CARE 148 MG/DL (70-110)
[2021-08-18] MEDS: ATORVASTATIN CALCIUM 40 MG TABLET PEG SCH (21:08)
[2021-08-18 21:15] VITALS: BP 133/49
[2021-08-19] VITALS (10 sets, daily range): BP systolic 130–144; BP diastolic 50–61
[2021-08-19 06:46] LABS: GLUCOMETER DEV NAME(LOC) 2WR.1C; GLUCOSE,POINT OF CARE 112 MG/DL (70-110)
[2021-08-19] MEDS: LANSOPRAZOLE 30 MG SOLUBLE TABLET PEG SCH (07:47)
[2021-08-19] MEDS: VITAMIN B COMP/VIT C/FOLIC ACID CAPSULE PEG SCH (07:47)
[2021-08-19] MEDS: SACUBITRIL/VALSARTAN 24-26 MG TABLET PEG SCH ×2 (07:47→20:27)
[2021-08-19] MEDS: DOCUSATE SODIUM 100 MG/10 ML LIQUID UDCUP PEG SCH ×2 (07:47→20:26)
[2021-08-19] MEDS: FLUoxetine HCL 20 MG/5 ML SOLUTION UDCUP PEG SCH (07:47)
[2021-08-19] MEDS: ASPIRIN 81 MG CHEWABLE TABLET PEG SCH (07:48)
[2021-08-19] MEDS: ALLOPURINOL 100 MG TABLET PEG SCH (07:48)
[2021-08-19] MEDS: CLOPIDOGREL BISULFATE 75 MG TABLET PEG SCH (07:48)
[2021-08-19] MEDS: MODAFINIL 100 MG TABLET PO SCH (07:49)
[2021-08-19] MEDS: CALCIUM ACETATE 667 MG CAPSULE PEG SCH ×3 (07:49→16:44)
[2021-08-19] MEDS: SEVELAMER CARBONATE 800 MG POWDER PACKET PEG SCH ×3 (07:49→20:27)
[2021-08-19] MEDS: 0.9% SODIUM CHLORIDE 10 ML SYRINGE IVP SCH ×2 (08:22→20:42)
[2021-08-19] MEDS: ETHYL ALCOHOL 62% ANTISEPTIC NASAL SANITIZER 0.6 ML AMPUL NASAL SCH ×2 (08:22→20:27)
[2021-08-19] MEDS: CARVEDILOL 3.125 MG TABLET PEG SCH ×2 (08:23→20:27)
[2021-08-19] MEDS: AmLODIPine BESYLATE 10 MG TABLET PEG SCH (08:23)
[2021-08-19 08:32] LABS: CALCIUM, TOTAL 8.4 mg/dL (8.8-10.5); CREATININE 5.52 mg/dL (0.60-1.30); POTASSIUM 4.3 mmol/L (3.5-5.1)
[2021-08-19 12:36] LABS: GLUCOMETER DEV NAME(LOC) 2WR.2B; GLUCOSE,POINT OF CARE 113 MG/DL (70-110)
[2021-08-19] MEDS ORDERED: SODIUM CHLORIDE 0.9% 1,000 ML ONE (12:44)
[2021-08-19 17:32] LABS: GLUCOMETER DEV NAME(LOC) 2WR.2B; GLUCOSE,POINT OF CARE 81 MG/DL (70-110)
[2021-08-19] MEDS: ATORVASTATIN CALCIUM 40 MG TABLET PEG SCH (20:27)
[2021-08-20 05:21] LABS: GLUCOMETER DEV NAME(LOC) 2WR.1C; GLUCOSE,POINT OF CARE 93 MG/DL (70-110)
[2021-08-20 07:55] VITALS: BP 145/59
[2021-08-20 08:36] LABS: GLUCOMETER DEV NAME(LOC) 2WR.1C; GLUCOSE,POINT OF CARE 85 MG/DL (70-110)
[2021-08-20] MEDS: ETHYL ALCOHOL 62% ANTISEPTIC NASAL SANITIZER 0.6 ML AMPUL NASAL SCH (08:38)
[2021-08-20] MEDS: CALCIUM ACETATE 667 MG CAPSULE PEG SCH ×2 (08:38→12:54)
[2021-08-20] MEDS: DOCUSATE SODIUM 100 MG/10 ML LIQUID UDCUP PEG SCH ×2 (08:39→08:45)
[2021-08-20] MEDS: CARVEDILOL 3.125 MG TABLET PEG SCH (08:39)
[2021-08-20] MEDS: ASPIRIN 81 MG CHEWABLE TABLET PEG SCH (08:39)
[2021-08-20] MEDS: SACUBITRIL/VALSARTAN 24-26 MG TABLET PEG SCH (08:39)
[2021-08-20] MEDS: AmLODIPine BESYLATE 10 MG TABLET PEG SCH (08:40)
[2021-08-20] MEDS: VITAMIN B COMP/VIT C/FOLIC ACID CAPSULE PEG SCH (08:40)
[2021-08-20] MEDS: CLOPIDOGREL BISULFATE 75 MG TABLET PEG SCH (08:40)
[2021-08-20] MEDS: LANSOPRAZOLE 30 MG SOLUBLE TABLET PEG SCH (08:40)
[2021-08-20] MEDS: FLUoxetine HCL 20 MG/5 ML SOLUTION UDCUP PEG SCH (08:40)
[2021-08-20] MEDS: ALLOPURINOL 100 MG TABLET PEG SCH (08:41)
[2021-08-20] MEDS: MODAFINIL 100 MG TABLET PO SCH (08:41)
[2021-08-20] MEDS: SEVELAMER CARBONATE 800 MG POWDER PACKET PEG SCH (08:41)
[2021-08-20] MEDS: 0.9% SODIUM CHLORIDE 10 ML SYRINGE IVP SCH (08:44)
[2021-08-20] MEDS ORDERED: DOCU50LI25 GT (09:07)
[2021-08-20] MEDS ORDERED: LANS30TA15 PEG (09:07)
[2021-08-20] MEDS ORDERED: INSU100V SQ (09:07)
[2021-08-20] MEDS ORDERED: FLUO20CA36 PEG (09:07)
[2021-08-20] MEDS ORDERED: CLOP75TA60 PEG (09:07)
[2021-08-20] MEDS ORDERED: SACU1TAB PEG (09:07)
[2021-08-20] MEDS ORDERED: MODA100T65 PEG (09:07)
[2021-08-20] MEDS ORDERED: ATOR40TA28 PEG (09:07)
[2021-08-20] MEDS: INSULIN LISPRO 100 UNITS/ML SQ PRN (12:58)
[2021-08-20 13:26] LABS: GLUCOMETER DEV NAME(LOC) 2WR.2B; GLUCOSE,POINT OF CARE 141 MG/DL (70-110)
[2021-08-20 14:00] VITALS: BP 130/52
== END 2021-08-20 15:40 | DRG 56 ==
LOC: 2WR 15:45
PROVIDERS: ADMIT Physical Medicine & Rehabilitation; ATTEND Physical Medicine & Rehabilitation
PROC: 5A1D70Z Performance of Urinary Filtration, Intermittent, Less than 6 Hours Per Day (ICD-10-PCS; principal; 2021-08-07)
PROC: 5A1D70Z Performance of Urinary Filtration, Intermittent, Less than 6 Hours Per Day (ICD-10-PCS; 2021-08-10)
PROC: 5A1D70Z Performance of Urinary Filtration, Intermittent, Less than 6 Hours Per Day (ICD-10-PCS; 2021-08-15)
PROC: 5A1D70Z Performance of Urinary Filtration, Intermittent, Less than 6 Hours Per Day (ICD-10-PCS; 2021-08-17)
DX: I69.351 Hemiplegia and hemiparesis following cerebral infarction affecting right dominant side (principal); I61.8 Other nontraumatic intracerebral hemorrhage; N18.6 End stage renal disease; I63.9 Cerebral infarction, unspecified; I13.2 Hypertensive heart and chronic kidney disease with heart failure and with stage 5 chronic kidney disease, or end stage renal disease; I50.22 Chronic systolic (congestive) heart failure; T86.12 Kidney transplant failure; E44.0 Moderate protein-calorie malnutrition; I69.391 Dysphagia following cerebral infarction; I69.320 Aphasia following cerebral infarction; D63.1 Anemia in chronic kidney disease; E11.22 Type 2 diabetes mellitus with diabetic chronic kidney disease; E78.5 Hyperlipidemia, unspecified; I25.10 Atherosclerotic heart disease of native coronary artery without angina pectoris; I25.5 Ischemic cardiomyopathy; K59.00 Constipation, unspecified; M10.9 Gout, unspecified; R32 Unspecified urinary incontinence; E11.40 Type 2 diabetes mellitus with diabetic neuropathy, unspecified; E11.51 Type 2 diabetes mellitus with diabetic peripheral angiopathy without gangrene; D69.6 Thrombocytopenia, unspecified; Y83.0 Surgical operation with transplant of whole organ as the cause of abnormal reaction of the patient, or of later complication, without mention of misadventure at the time of the procedure; Z79.4 Long term (current) use of insulin; Z79.82 Long term (current) use of aspirin; Z86.15 Personal history of latent tuberculosis infection; Z93.1 Gastrostomy status; Z99.2 Dependence on renal dialysis; Z68.21 Body mass index [BMI] 21.0-21.9, adult
CPT/HCPCS: 71046; 74230; 80048; 80053; 82962; 83540; 83550; 83735; 84100; 85025; 87040; 87081; 87340; 90935; 92507; 92523; 92526; 92611; 93970; 97110; 97112; 97116; 97163; 97167; 97530; 97535; 99366; J2916; J7030; J7050; Q9967; 36415-L1; 36415-TC